=== PATIENT | male | born 1980 | race Caucasian/White ===

== ENCOUNTER 2016-06-07 07:50 | Emergency (ER) | payer BC ==
[~2016-06-07] VITALS: Ht 193 cm; Wt 109.4 kg
[~2016-06-07 07:50] MED LIST: FLEXERIL10 MG PO; NAPROSYN500 MG PO; NORCO 5/3251 TABLET PO; PROZAC20 MG PO; ZYRTEC10 M3 PO
[2016-06-07] MEDS ORDERED: WELLBUTRIN XL300 MG PO (08:36)
[2016-06-07] MEDS ORDERED: PEPCID AC20 MG PO (08:36)
[2016-06-07] MEDS ORDERED: PREDNISONE20 MG PO (08:37)
[2016-06-07] MEDS ORDERED: LAMICTAL100 MG PO (08:37)
[2016-06-07 08:51] LABS: HEMATOCRIT 44.2 % (38.0-50.0); MCH 28.9 PG (29.0-34.0); MCHC 34.4 G/DL (30.0-36.0); MEAN PLAT.VOLUME 9.6 uM^3 (9.0-12.4); PLATELET COUNT 212 K/uL (156-360); RBC DIS.WIDTH-CV 12.8 % (11.8-14.6); RBC DIS.WIDTH-SD 38.7 % (39-53); RED BLOOD COUNT 5.26 M/uL (4.00-5.50); WHITE BLOOD COUNT 6.6 K/uL (4.1-10.2)
[2016-06-07 08:59] LABS: CHLORIDE 106 mEq/L (99-109); POTASSIUM 3.7 mEq/L (3.7-5.4)
[2016-06-07 09:00] LABS: SODIUM 141 mEq/L (136-147)
[2016-06-07 09:01] LABS: GLUCOSE 118 mg/dL (70-99)
[2016-06-07 09:03] LABS: ANION GAP 11 MEQ/L (2-14)
[2016-06-07 09:05] LABS: GFR ESTIMATE (CALCULATED) > 59 mL/min/
[2016-06-07 09:06] LABS: UREA NITROGEN (BUN) 14 mg/dL (9-23)
[2016-06-07] MEDS ORDERED: CLINDAMYCIN HC300 MG PO (11:33)
[2016-06-07 12:19] VITALS: BP 139/70
== END 2016-06-07 12:20 | disposition home or self-care (01) ==
LOC: EME 07:50
PROVIDERS: Nurse Practitioner Family
DX: L03.211 Cellulitis of face (principal)
CPT/HCPCS: 70488; 80048; 85027; 99281; 99285; J7030